=== PATIENT | male | born 1990 | race Caucasian/White ===

== ENCOUNTER 2016-12-21 14:43 | Emergency (ER) | payer MEDICAID ==
[~2016-12-21] VITALS: Wt 78.5 kg
[2016-12-21] MEDS ORDERED: ONDANSETRON (ODT) 4 MG TAB ODT STA ×2 (15:49)
[2016-12-21] MEDS ORDERED: MECLIZINE 12.5 MG TAB PO ONE (16:00)
[2016-12-21 16:12] LABS: ADD SCAN DIFF NO
[2016-12-21 16:13] LABS: BASOPHILS % 0.4 % (0.0-2.0); EOSINOPHILS # 0.1 10^3/ul (0.0-0.5); EOSINOPHILS % 1.6 % (0.0-7.0); HEMATOCRIT 45.6 % (42.0-52.0); HEMOGLOBIN 14.8 g/dl (14.0-18.0); LYMPHOCYTES # 2.1 10^3/ul (0.8-2.9); LYMPHOCYTES % 30.5 % (15.0-51.0); MEAN CORPUSCULAR HEMOGLOBIN 28.4 pg (29.0-33.0); MEAN CORPUSCULAR HGB CONC 32.5 g/dl (32.0-37.0); MEAN CORPUSCULAR VOLUME 87.5 fl (82.0-101.0); MEAN PLATELET VOLUME 10.2 fl (7.4-10.4); MONOCYTE # 0.5 10^3/ul (0.3-0.9); MONOCYTES % 7.8 % (0.0-11.0); NEUTROPHIL # 4.2 10^3/ul (1.6-7.5); NEUTROPHILS % 59.6 % (39.0-77.0); PLATELET COUNT 239 10^3/UL (140-415); RED BLOOD COUNT 5.21 10^6/ul (4.70-6.10); RED CELL DISTRIBUTION WIDTH 13.1 % (11.5-14.5)
[2016-12-21 16:33] LABS: ALBUMIN/GLOBULIN RATIO 1.42; BILIRUBIN,INDIRECT 0.4 mg/dl (0-1.1); BILIRUBIN,TOTAL 0.4 mg/dl (0.2-1.3); CALCIUM 9.1 mg/dl (8.4-10.2); CREATININE 1.19 mg/dl (0.61-1.24); POTASSIUM 4.1 mmol/L (3.5-5.1); TOTAL PROTEIN 8.5 g/dl (6.1-8.1)
--- NOTE | 2016-12-21 16:40 | RADRPT ---
PROCEDURE: CT Brain without. CLINICAL INDICATION: Headache, dizziness. TECHNIQUE: A CT of the brain was performed on multidetector high-resolution CT scanner utilizing a xial sections from the skull base through the vertex without contrast. The scan was reviewed in sof t tissue brain and high frequency resolution bone algorithm windows. Images were reviewed on a high -resolution PACS workstation. One or more the following does reduction techniques were utilized: Aut omated exposure control, adjustment of the mA/ or kV according to patient's size, or use of iterativ e reconstruction technique. The exam CTDI = 43.60 mGy and the DLP = 824.66 mGy-cm. COMPARISON: None available. FINDINGS: The ventricles and sulci are age-appropriate. There is no intracranial hemorrhage, mass effect or mi dline shift. No abnormal intra-axial or extra-axial fluid collections are seen. The baum/white favian er differentiation is preserved. No acute skull abnormality is noted. The visualized paranasal sinus es are essentially clear. IMPRESSION: 1. No acute intracranial hemorrhage, transcortical infarction or mass effect. RPTAT: UU .Zari Parks MD, MD Date Time Electronically viewed and signed by .Zari Parks MD, MD on 12/21/2016 16:40 .N/
[2016-12-21] MEDS ORDERED: ONDA8TAB14 PO (16:56)
--- NOTE | 2016-12-21 17:03 | ERD ---
ER Documentation Chief Complaint Date/Time DATE: 12/21/16 TIME: 17:01 Chief Complaint DIZZINESS, NAUSEA, ONSET 4 DYS, NO FINK HPI This 18-year-old male complains of nausea and dizzy of the last 4 days. States there is a left-sided headache as well has a history of trauma. He characterizes as lightheadedness although it possibly gets a spinning sensation every once in a while. He denies any recent illnesses fevers, cough, shortness of the chest pain. Denies any vomiting although he has mild nausea. Patient admits to being under stress and some recent unspecified "bad newS". ROS All systems reviewed and are negative except as per history of present illness. Medications Home Meds Active Scripts Ondansetron (Ondansetron Odt) 8 Mg Tab.rapdis, 8 MG PO Q6H Y for NAUSEA AND/OR VOMITING, #8 TAB Prov:MALINDA BLACKBURN MD 12/21/16 Reported Medications [None] No Conflict Check 12/31/11 Allergies Allergies: Coded Allergies: Avocado (Verified Allergy, 01/01/12) No Known Drug Allergies (Verified Allergy, 12/31/11) Uncoded Allergies: NONE (Allergy, 12/31/11) PMhx/Soc History of Surgery: No Anesthesia Reaction: No Hx Neurological Disorder: No Hx Respiratory Disorders: No Hx Cardiac Disorders: No Hx Psychiatric Problems: No Hx Miscellaneous Medical Probl: No Hx Alcohol Use: No Hx Substance Use: No Hx Tobacco Use: No Smoking Status: Never smoker Physical Exam Vitals Vital Signs Date Time Temp Pulse Resp B/P Pulse Ox O2 Delivery O2 Flow Rate FiO2 12/21/16 14:46 97.0 80 17 130/68 97 Physical Exam Const: [] Alert, [id number] per Head: Atraumatic Eyes: Normal Conjunctiva ENT: Normal External Ears, Nose and Mouth. Neck: Full range of motion..~ No meningismus. Resp: Clear to auscultation bilaterally Cardio: Regular rate and rhythm, no murmurs Abd: Soft, non tender, non distended. Normal bowel sounds Skin: No petechiae or rashes Back: No midline or flank tenderness Ext: No cyanosis, or edema Neur: Awake and alert. No cerebellar signs and no reproducible vertigo. Cranial nerves II through XII grossly intact. Normal gait. Psych: Normal Mood and Affect Result Diagram: 12/21/16 1605 12/21/16 1605 Results 24 hrs Laboratory Tests Test 12/21/16 16:05 White Blood Count 7.010^3/ul Red Blood Count 5.2110^6/ul Hemoglobin 14.8g/dl Hematocrit 45.6% Mean Corpuscular Volume 87.5fl Mean Corpuscular Hemoglobin 28.4pg Mean Corpuscular Hemoglobin Concent 32.5g/dl Red Cell Distribution Width 13.1% Platelet Count 27849^3/UL Mean Platelet Volume 10.2fl Neutrophils % 59.6% Lymphocytes % 30.5% Monocytes % 7.8% Eosinophils % 1.6% Basophils % 0.4% Nucleated Red Blood Cells % 0.0/100WBC Neutrophils # 4.210^3/ul Lymphocytes # 2.110^3/ul Monocytes # 0.510^3/ul Eosinophils # 0.110^3/ul Basophils # 0.010^3/ul Nucleated Red Blood Cells # 0.010^3/ul Sodium Level 144mmol/L Potassium Level 4.1mmol/L Chloride Level 109mmol/L Carbon Dioxide Level 29mmol/L Anion Gap 10 Blood Urea Nitrogen 12mg/dl Creatinine 1.19mg/dl Glucose Level 80mg/dl Calcium Level 9.1mg/dl Total Bilirubin 0.4mg/dl Direct Bilirubin 0.00mg/dl Indirect Bilirubin 0.4mg/dl Aspartate Amino Transf (AST/SGOT) 27IU/L Alanine Aminotransferase (ALT/SGPT) 43IU/L Alkaline Phosphatase 81IU/L Total Protein 8.5g/dl Albumin 5.0g/dl Globulin 3.50g/dl Albumin/Globulin Ratio 1.42 Current Medications Medications (Trade) Dose Ordered Sig/Masha Route PRN Reason Start Time Stop Time Status Last Admin Dose Admin Ondansetron HCl (Zofran Odt) 8 mg ONCE STAT ODT 12/21/16 15:49 12/21/16 15:53 DC Meclizine HCl (Antivert) 25 mg ONCE ONCE PO 12/21/16 16:00 12/21/16 16:01 DC 12/21/16 16:10 Ondansetron HCl (Zofran Odt) 8 mg ONCE STAT ODT 12/21/16 15:49 12/21/16 15:51 DC 12/21/16 16:10 Procedures/MDM Patient presents with uncertain cause of dizziness and headache. CT brain was normal. CBC and CMP normal EKG: Rate/Rhythm: [Normal Sinus Rhythm] rate equals 71 QRS, ST, T-waves: [No changes consistent w/ acute ischemia] Impression: [No evidence of ischemia or arrhythmia] Patient does admit to recent stress which may be a contributing factor. Signs and symptoms do not suggest intracranial lesions, neurologic deficit, bleeding, acute coronary syndrome, signs or symptoms to suggest pulmonary aneurysm, additional causes of dizziness or syncope or presenting complaints. Discharged home a short course of Zofran and further observation. The patient was stable with no new complaints during the ER course. Clinically, there is no current evidence to suggest meningitis, sepsis, acute abdomen, pneumonia, acute coronary syndrome, pulmonary embolism, or any other emergent condition appearing to require further evaluation or hospitalization. The patient should certainly return for any new or worsening symptoms per the aftercare instructions. They should otherwise follow-up with her primary care doctor for reevaluation this week. Departure Diagnosis: Primary Impression: Dizziness Condition: Stable Patient Instructions: Dizziness, Unk Cause Additional Instructions: All examinations normal today. Uncertain cause of symptoms which could possibly be stress related. Recheck for new or worsening symptoms or primary care doctor. MALINDA BLACKBURN MD Dec 21, 2016 17:03
[2016-12-21 17:24] VITALS: BP 122/76; PULSE 72; RESP 20; TEMP 98.1
== END 2016-12-21 17:25 | disposition home or self-care (01) ==
LOC: FTE 14:43
DX: R42 Dizziness and giddiness (principal); R11.0 Nausea
CPT/HCPCS: 70450; 80053; 85025; 93005; Z7610

== ENCOUNTER 2017-04-03 19:53 | Emergency (ER) | payer SELFPAY ==
[~2017-04-03] VITALS: Ht 170.2 cm; Wt 78.0 kg
[~2017-04-03 19:53] MED LIST: ONDA8TAB14 PO
[2017-04-03 19:59] VITALS: Ht 170.2 cm; Wt 78.0 kg
== END 2017-04-04 00:48 | disposition left against medical advice (07) ==
LOC: FTE 19:53
DX: Z53.21 Procedure and treatment not carried out due to patient leaving prior to being seen by health care provider (principal)

== ENCOUNTER 2017-09-04 19:37 | Emergency (ER) | END 2017-09-05 02:16 | disposition left against medical advice (07) ==

== ENCOUNTER 2018-01-01 21:51 | Emergency (ER) | END 2018-01-02 01:32 | disposition home or self-care (01) ==

== ENCOUNTER 2018-12-05 22:08 | Emergency (ER) | payer OTHER ==
[~2018-12-05] VITALS: Wt 74.1 kg
[~2018-12-05 22:08] MED LIST changes: +IBUP-1542 PO
[2018-12-06] MEDS ORDERED: KETOROLAC 30 MG INJ IM STA (00:18)
--- NOTE | 2018-12-06 00:18 | ERD ---
ER Documentation Chief Complaint Chief Complaint CWP X'S 4 DAYS HPI This is a 28-year-old male who presents here in the emergency department with complaints of left-sided chest pain for about 4 days. Denies headache, head injury, loss of consciousness, dizziness, neck pain, neck stiffness, throat pain, difficulty swallowing, difficulty breathing lying flat, shoulder pain, back pain, abdominal pain, nausea, vomiting, constipation, diarrhea, urinary symptoms, loss of bowel and bladder control, trauma, injury, falls, difficulty walking due to pain, numbness or tingling sensation, calf pain, recent travel, recent major surgery in the last 3 weeks, calf pain, recent long travel, recent exposure to any illness, recent antibiotic use in the last 3 months, fever, chills, seizures. Past medical history: Surgical history: Social: Denies smoking, use of alcoholic beverages, use of illegal drugs. ROS All systems reviewed and are negative except as per history of present illness. Medications Home Meds Active Scripts Ibuprofen* (Motrin*) 800 Mg Tab, 800 MG PO Q6H PRN for PAIN AND OR ELEVATED TEMP, #20 TAB Prov:RAHUL AL 12/06/18 Ibuprofen* (Motrin*) 600 Mg Tab, 600 MG PO Q6, #30 TAB Prov:CARINA AMOS PA-C 01/02/18 Ibuprofen* (Motrin*) 600 Mg Tab, 600 MG PO Q6, #30 TAB Prov:COMPAFRANCESCA 09/05/17 Ondansetron (Ondansetron Odt) 8 Mg Tab.rapdis, 8 MG PO Q6H PRN for NAUSEA AND/OR VOMITING, #8 TAB Prov:MALINDA BLACKBURN MD 12/21/16 Reported Medications [None] No Conflict Check 12/31/11 Allergies Allergies: Coded Allergies: No Known Drug Allergies (Verified Allergy, Unknown, 01/01/18) avocado (Verified Allergy, Unknown, 01/01/18) PMhx/Soc History of Surgery: No Anesthesia Reaction: No Hx Neurological Disorder: No Hx Respiratory Disorders: No Hx Cardiac Disorders: No Hx Psychiatric Problems: No Hx Miscellaneous Medical Probl: No Hx Alcohol Use: No Hx Substance Use: No Hx Tobacco Use: No Physical Exam Vitals Vital Signs Date Temp Pulse Resp B/P (MAP) Pulse Ox O2 O2 Flow FiO2 Time Delivery Rate 12/05/18 98.0 61 16 134/61 98 22:29 (85) Physical Exam Const: No acute distress Head: Atraumatic Eyes: Normal Conjunctiva ENT: Normal External Ears, Nose and Mouth. Throat pain: Uvula is midline and nondisplaced. Tonsils are +1 bilaterally without redness without exudates. Tolerating secretions. Patent airway. Speaks full and clear sentences. Neck: Full range of motion. No meningismus. Resp: Clear to auscultation bilaterally. Chest area: No vesicular lesions. Mild tenderness to palpation. Has anterior chest pain during range of motion of the T-spine. Cardio: Regular rate and rhythm, no murmurs Abd: Soft, non tender, non distended. Normal bowel sounds Skin: No petechiae or rashes Back: No midline or flank tenderness C-spine/T-spine/L-spine are midline with good and full range of motion and is no swelling/deformity/bulging/point of tenderness. Ext: No cyanosis, or edema. No neurovascular deficit. Ambulatory with steady gait. Neur: Awake and alert. No neurological deficits. Psych: Normal Mood and Affect Result Diagram: 12/06/184 12/06/184 Results 24 hrs Laboratory Tests Test 12/06/18 00:44 White Blood Count 6.3 10^3/ul Red Blood Count 5.20 10^6/ul Hemoglobin 14.3 g/dl Hematocrit 46.0 % Mean Corpuscular Volume 88.5 fl Mean Corpuscular Hemoglobin 27.5 pg Mean Corpuscular Hemoglobin Concent 31.1 g/dl Red Cell Distribution Width 12.3 % Platelet Count 242 10^3/UL Mean Platelet Volume 10.2 fl Immature Granulocytes % 0.200 % Neutrophils % 38.4 % Lymphocytes % 47.8 % Monocytes % 7.6 % Eosinophils % 5.4 % Basophils % 0.6 % Nucleated Red Blood Cells % 0.0 /100WBC Immature Granulocytes # 0.010 10^3/ul Neutrophils # 2.4 10^3/ul Lymphocytes # 3.0 10^3/ul Monocytes # 0.5 10^3/ul Eosinophils # 0.3 10^3/ul Basophils # 0.0 10^3/ul Nucleated Red Blood Cells # 0.0 10^3/ul Prothrombin Time 13.4 Sec Prothrombin Time Ratio 1.0 INR International Normalized Ratio 1.01 Activated Partial Thromboplast Time 37.8 Sec Sodium Level 142 mmol/L Potassium Level 4.2 mmol/L Chloride Level 104 mmol/L Carbon Dioxide Level 30 mmol/L Anion Gap 8 Blood Urea Nitrogen 14 mg/dl Creatinine 1.26 mg/dl Est Glomerular Filtrat Rate mL/min > 60 mL/min Glucose Level 92 mg/dl Calcium Level 9.3 mg/dl Total Bilirubin 0.5 mg/dl Direct Bilirubin 0.00 mg/dl Indirect Bilirubin 0.5 mg/dl Aspartate Amino Transf (AST/SGOT) 30 IU/L Alanine Aminotransferase (ALT/SGPT) 22 IU/L Alkaline Phosphatase 72 IU/L Troponin I < 0.012 ng/ml Total Protein 8.0 g/dl Albumin 4.4 g/dl Globulin 3.60 g/dl Albumin/Globulin Ratio 1.22 Current Medications Medications Dose Sig/Masha Start Time Status Last (Trade) Ordered Route PRN Stop Time Admin Dose Reason Admin Ketorolac 30 mg ONCE STAT 12/06/18 DC 12/06/18 Tromethamine IM 00:18 00:44 (Toradol) 12/06/18 00:19 Procedures/MDM Diagnostic tests: Patient is insisting blood works and chest x-ray. EKG: Normal sinus rhythm with ventricular rate of 60 bpm. No STEMI. Read by supervising physician. Blood works: Reviewed. Chest x-ray: No acute cardiopulmonary process identified. Treatment: Toradol IM. Re-evaluation: Denies chest pain. Skin appears normal for ethnicity. No diaphoresis. Differential diagnosis I have low suspicion for sepsis, acute myocardial infarction, acute coronary syndrome, pneumonia, bronchospasm, pneumothorax, hemothorax. Final diagnosis: Costochondritis. Chest wall pain. Prescription: Motrin. Hydroxyzine. Follow-up with PCP in the next 24-48 hours. Come back here in the emergency department for any new symptoms or any worsening symptoms. All questions and concerns were answered. Patient and family members verbalized understanding and agreed with plan of care. Hemodynamically stable on discharge. Departure Diagnosis: Primary Impression: Chest wall pain Condition: Stable Additional Instructions: Follow-up with PCP in the next 24-48 hours. Come back here in the emergency department for any new symptoms or any worsening symptoms. RAHUL AL December 06, 2018 00:18
[2018-12-06] MEDS ORDERED: IBUP800T48 PO (01:54)
[2018-12-06 02:16] VITALS: BP 119/69; PULSE 58; RESP 18
--- NOTE | 2018-12-06 14:25 | RADRPT ---
Vent Rate: 60 bpm RR Interval: 0 msec MO Interval: 142 msec QRS Duration: 90 msec QT Interval: 402 msec QTC Interval: 402 msec P-R-T [place]: 70 - 84 - 55 degrees Normal sinus rhythm Normal ECG Electronically Signed By: [facility]
== END 2018-12-06 02:17 | disposition home or self-care (01) ==
LOC: FTE 22:08
DX: R07.89 Other chest pain (principal)
CPT/HCPCS: 71046; 80053; 84484; 85025; 85610; 85730; 93005; 96372; J1885; Z7502